=== PATIENT | female | born 1955 | race Two or more races ===

== ENCOUNTER 2024-09-30 17:13 | Inpatient (IN) | payer MEDICARE ==
[~2024-09-30] VITALS: Ht 149.9 cm; Wt 68.0 kg
[2024-09-30] MEDS ORDERED: ACETAMINOPHEN 325 MG TABLET ONE (18:19)
[2024-09-30] MEDS ORDERED: MORPHINE SULFATE INJ 2 MG/ML DISP.SYRIN ONE (18:19)
[2024-09-30] MEDS ORDERED: ONDANSETRON HCL/PF 4 MG/2 ML VIAL ONE (18:19)
[2024-09-30 18:24] LABS: BASOPHILS # (AUTO) 0.1 K/uL (0.0-0.2); BASOPHILS % (AUTO) 0.5 % (0.0-2.0); EOSINOPHILS % (AUTO) 0.2 % (0.0-6.0); HEMATOCRIT 33 % (33-45); HEMOGLOBIN 10.7 g/dL (11.5-14.8); LYMPHOCYTES # (AUTO) 0.9 K/uL (0.8-4.8); LYMPHOCYTES % (AUTO) 6.1 % (20.0-44.0); MEAN CORPUSCULAR HEMOGLOBIN 25 PG (26.0-33.0); MEAN CORPUSCULAR HGB CONC 32 g/dl (31.0-36.0); MEAN CORPUSCULAR VOLUME 77 fL (82-100); MONOCYTES # (AUTO) 1.3 K/uL (0.1-1.30); MONOCYTES % (AUTO) 9.5 % (2.0-12.0); NEUTROPHILS # (AUTO) 11.9 K/uL (1.8-8.9); NEUTROPHILS % (AUTO) 83.7 % (43.0-81.0); PLATELET COUNT (AUTO) 290 K/uL (150-450); RED BLOOD CELL COUNT(AUTO) 4.26 MIL/uL (4.0-5.2); RED CELL DISTRIBUTION WIDTH 18.5 % (11.5-15.0); WHITE BLOOD COUNT (AUTO) 14.2 K/uL (4.3-11.0)
[2024-09-30] MEDS: IV NS 0.9% 1,000 ML BAG IV ONE (18:26)
[2024-09-30] MEDS: MORPHINE SULFATE INJ 2 MG/ML DISP.SYRIN IV ONE (18:27)
[2024-09-30] MEDS: ACETAMINOPHEN 325 MG TABLET PO ONE (18:28)
[2024-09-30] MEDS: ONDANSETRON HCL/PF 4 MG/2 ML VIAL IVP ONE (18:28)
[2024-09-30 19:01] LABS: CARBON DIOXIDE 27 mmol/L (21-32); CHLORIDE 102 mmol/L (98-107); CREATININE 0.7 mg/dL (0.6-1.3); GLUCOSE 118 mg/dL (74-106); POTASSIUM 3.5 mmol/L (3.5-5.1); SODIUM SERUM 136 mmol/L (136-145); UREA NITROGEN, BLOOD 13 mg/dL (7-18)
[2024-09-30 19:06] LABS: ALANINE AMINOTRANSFERASE 13 U/L (12-78); ALBUMIN 3.1 g/dL (3.4-5.0); ALKALINE PHOSPHATASE 102 U/L (46-116); ASPARTATE AMINOTRANSFERASE 15 U/L (15-37); BILIRUBIN,DIRECT 0.3 mg/dL (0.0-0.2); BILIRUBIN,TOTAL 1.3 mg/dL (0.2-1.0); TOTAL PROTEIN, SERUM 7.1 g/dL (6.4-8.2)
[2024-09-30] MEDS ORDERED: SERT100T PO (19:09)
[2024-09-30] MEDS ORDERED: NAPR-1164 PO (19:09)
[2024-09-30] MEDS ORDERED: NAPR1TAB PO (19:09)
[2024-09-30] MEDS ORDERED: PIPERACI/TAZO 3.375GM/D5W 50ML PB IV ONE (20:12)
[2024-09-30 20:16] LABS: INR 1.07 (0.91-1.10); PARTIAL THROMBOPLASTIN TIME 32.6 SEC (24.3-34.3); PROTHROMBIN TIME 11.3 SECS (9.2-11.1)
[2024-09-30] MEDS: PIPERACILLIN /TAZOBACTAM 3.375 G in IV D5W 50 ML IV ONE (20:19)
[2024-09-30] MEDS ORDERED: ACETAMINOPHEN 650 MG/SUPP.RECT RC PRN (21:30)
[2024-09-30] MEDS ORDERED: Z GUARD REMEDY 4 OZ OINT TP PRN (21:30)
[2024-09-30] MEDS ORDERED: ONDANSETRON HCL/PF 4 MG/2 ML VIAL IVP PRN (21:30)
[2024-09-30 22:24] LABS: APPEARANCE,URINE CLEAR (CLEAR); BILIRUBIN,URINE 1+ (NEGATIVE); BLOOD, URINE 1+ Ery/uL (NEGATIVE); COLOR,URINE YELLOW (YELLOW); KETONES,URINE 1+ mg/dL (NEGATIVE); LEUKOCYTE ESTERASE ,URINE 1+ (NEGATIVE); NITRITE, URINE NEGATIVE (NEGATIVE); PROTEIN,URINE TRACE mg/dl (NEGATIVE); UGLUCOSE NEGATIVE (NEGATIVE); UROBILINOGEN,URINE 0.2 EU/dL (0.2)
[2024-09-30 22:44] LABS: BACTERIA,URINE Moderate /HPF (None Seen); SQUAMOUS EPITHELIAL CELL,UR Moderate /HPF (None Seen)
[2024-09-30 22:45] LABS: ADD URINE CULTURE YES
[2024-09-30] MEDS: IV NS 0.9% 1,000 ML IV PRN (23:14)
[2024-10-01] MEDS: PIPERACILLIN /TAZOBACTAM 3.375 G in IV D5W 50 ML IV ONE (02:07)
[2024-10-01] MEDS: PIPERACI/TAZO 3.375GM/D5W 50ML PB IV ONE (02:09)
[2024-10-01 06:24] LABS: ALBUMIN 2.5 g/dL (3.4-5.0); BILIRUBIN,DIRECT 0.5 mg/dL (0.0-0.2); BILIRUBIN,TOTAL 1.4 mg/dL (0.2-1.0); CALCIUM, SERUM 8.5 mg/dL (8.5-10.1); CREATININE 0.7 mg/dL (0.6-1.3); MAGNESIUM 2.2 mg/dL (1.8-2.4); PHOSPHORUS 2.3 mg/dL (2.5-4.9); POTASSIUM 3.5 mmol/L (3.5-5.1); TOTAL PROTEIN, SERUM 6.3 g/dL (6.4-8.2)
[2024-10-01 06:34] LABS: BASOPHILS % (AUTO) 0.2 % (0.0-2.0); EOSINOPHILS # (AUTO) 0.1 K/uL (0.0-0.7); EOSINOPHILS % (AUTO) 1.1 % (0.0-6.0); HEMATOCRIT 29 % (33-45); HEMOGLOBIN 9.9 g/dL (11.5-14.8); LYMPHOCYTES # (AUTO) 0.8 K/uL (0.8-4.8); LYMPHOCYTES % (AUTO) 7.1 % (20.0-44.0); MEAN CORPUSCULAR HEMOGLOBIN 26 PG (26.0-33.0); MEAN CORPUSCULAR HGB CONC 34 g/dl (31.0-36.0); MEAN CORPUSCULAR VOLUME 77 fL (82-100); MONOCYTES % (AUTO) 9.4 % (2.0-12.0); NEUTROPHILS # (AUTO) 9.1 K/uL (1.8-8.9); NEUTROPHILS % (AUTO) 82.2 % (43.0-81.0); PLATELET COUNT (AUTO) 274 K/uL (150-450); RED BLOOD CELL COUNT(AUTO) 3.79 MIL/uL (4.0-5.2); RED CELL DISTRIBUTION WIDTH 18.4 % (11.5-15.0)
[2024-10-01 08:22] VITALS: BP 110/67; TEMP 97.7; O2SAT 96
[2024-10-01] MEDS: PANTOPRAZOLE 40 MG VIAL IV SCH (09:02)
[2024-10-01] MEDS: ZOSYN IVPB 3.375 G in IV D5W 50ml IV SCH (09:04)
[2024-10-01] MEDS ORDERED: POTASSIUM PHOSPHATE MM 15 MMOL in IV NS 0.9% 250 ML IV SCH (11:00)
[2024-10-01] MEDS: Sodium Phosphate 15 MMOL in IV NS 0.9% 245 ML IV SCH (11:39)
[2024-10-01 15:56] VITALS: BP 129/65; TEMP 99; O2SAT 98
[2024-10-01 20:00] VITALS: BP 114/71; TEMP 98.1; O2SAT 96
[2024-10-02 07:23] LABS: BASOPHILS % (AUTO) 0.2 % (0.0-2.0); EOSINOPHILS % (AUTO) 0.3 % (0.0-6.0); HEMATOCRIT 30 % (33-45); HEMOGLOBIN 9.8 g/dL (11.5-14.8); LYMPHOCYTES # (AUTO) 0.6 K/uL (0.8-4.8); LYMPHOCYTES % (AUTO) 4.8 % (20.0-44.0); MEAN CORPUSCULAR HEMOGLOBIN 25 PG (26.0-33.0); MEAN CORPUSCULAR HGB CONC 32 g/dl (31.0-36.0); MEAN CORPUSCULAR VOLUME 78 fL (82-100); MONOCYTES # (AUTO) 0.8 K/uL (0.1-1.30); MONOCYTES % (AUTO) 7.4 % (2.0-12.0); NEUTROPHILS % (AUTO) 87.3 % (43.0-81.0); PLATELET COUNT (AUTO) 321 K/uL (150-450); RED BLOOD CELL COUNT(AUTO) 3.86 MIL/uL (4.0-5.2); RED CELL DISTRIBUTION WIDTH 18.5 % (11.5-15.0); WHITE BLOOD COUNT (AUTO) 11.5 K/uL (4.3-11.0)
[2024-10-02 07:30] VITALS: BP 139/69; TEMP 98.3; O2SAT 97
[2024-10-02 07:38] LABS: ALBUMIN 2.4 g/dL (3.4-5.0); BILIRUBIN,DIRECT 0.3 mg/dL (0.0-0.2); BILIRUBIN,TOTAL 0.9 mg/dL (0.2-1.0); CALCIUM, SERUM 8.7 mg/dL (8.5-10.1); CREATININE 0.6 mg/dL (0.6-1.3); POTASSIUM 3.5 mmol/L (3.5-5.1); TOTAL PROTEIN, SERUM 6.5 g/dL (6.4-8.2)
[2024-10-02 16:00] VITALS: BP 127/61; TEMP 98.8; O2SAT 96
[2024-10-02 19:05] LABS: INR 1.08 (0.91-1.10); PROTHROMBIN TIME 11.4 SECS (9.2-11.1)
[2024-10-02 20:00] VITALS: BP 130/66; TEMP 98.4; O2SAT 93
[2024-10-03 07:30] VITALS: BP 141/63; TEMP 98.2; O2SAT 99
[2024-10-03] MEDS: SERTRALINE HCL 50 MG TABLET PO SCH (09:40)
[2024-10-03] MEDS ORDERED: INDOCYANINE GREEN 25 MG/VIAL VIAL IJ ONE (13:01)
[2024-10-03] MEDS ORDERED: LIDOCAINE 1%-EPI 1:100,000 20 ML VIAL ONE (13:01)
[2024-10-03] MEDS ORDERED: BUPIVACAINE 0.5 % PF 150 MG/30 ML VIAL ONE (13:01)
[2024-10-03] MEDS ORDERED: IOHEXOL 0 ML IV ONE (13:06)
[2024-10-03] MEDS ORDERED: ROCURONIUM BROMIDE 50 MG/5 ML ONE (13:52)
[2024-10-03] MEDS ORDERED: FENTANYL PF 100MCG/2ML AMPUL ONE (13:52)
[2024-10-03] MEDS ORDERED: Magnesium 1 GM/2 ML VIAL ONE (13:52)
[2024-10-03] MEDS ORDERED: MIDAZOLAM HCL 2 MG/2ML VIAL ONE (13:52)
[2024-10-03] MEDS ORDERED: LIDOCAINE 2% JEL UROJET 10 ML MM ONE (14:25)
[2024-10-03] MEDS ORDERED: LABETALOL HCL IV 100MG VIAL ONE (15:00)
[2024-10-03 15:15] VITALS: BP 143/80; TEMP 97.7; O2SAT 95
[2024-10-03] MEDS ORDERED: LIDOCAINE 1% INJ 50 ML MDV IJ ONE (15:29)
[2024-10-03] MEDS ORDERED: MEPERIDINE HCL/PF 50 MG/ML DISP.SYRIN IV PRN (15:30)
[2024-10-03] MEDS ORDERED: HYDROMORPHONE 1 MG/1 ML DISP.SYRIN IV PRN (15:30)
[2024-10-03] MEDS ORDERED: LABETALOL HCL IV 100MG VIAL IV PRN (15:30)
[2024-10-03] MEDS ORDERED: TRANEXAMIC ACID 1,000 MG/10 ML VIAL ONE (15:34)
[2024-10-03 17:45] VITALS: BP 141/70; TEMP 97.9; O2SAT 97
[2024-10-03 20:00] VITALS: BP 139/69; TEMP 98.4; O2SAT 94
[2024-10-03 21:00] VITALS: BP 123/70; TEMP 98; O2SAT 98
[2024-10-04] MEDS: MORPHINE SULFATE INJ 2 MG/ML DISP.SYRIN IV PRN (00:30)
[2024-10-04 04:46] VITALS: BP 125/69; TEMP 98.2; O2SAT 98
[2024-10-04 05:54] LABS: BASOPHILS % (AUTO) 0.1 % (0.0-2.0); HEMATOCRIT 27 % (33-45); HEMOGLOBIN 9.4 g/dL (11.5-14.8); LYMPHOCYTES # (AUTO) 0.6 K/uL (0.8-4.8); LYMPHOCYTES % (AUTO) 6.4 % (20.0-44.0); MEAN CORPUSCULAR HEMOGLOBIN 27 PG (26.0-33.0); MEAN CORPUSCULAR HGB CONC 35 g/dl (31.0-36.0); MEAN CORPUSCULAR VOLUME 77 fL (82-100); MONOCYTES # (AUTO) 0.9 K/uL (0.1-1.30); NEUTROPHILS % (AUTO) 84.5 % (43.0-81.0); PLATELET COUNT (AUTO) 305 K/uL (150-450); RED BLOOD CELL COUNT(AUTO) 3.56 MIL/uL (4.0-5.2); RED CELL DISTRIBUTION WIDTH 18.2 % (11.5-15.0); WHITE BLOOD COUNT (AUTO) 9.5 K/uL (4.3-11.0)
[2024-10-04 06:18] LABS: ALBUMIN 2.2 g/dL (3.4-5.0); BILIRUBIN,TOTAL 0.5 mg/dL (0.2-1.0); CALCIUM, SERUM 8.7 mg/dL (8.5-10.1); CREATININE 0.5 mg/dL (0.6-1.3); POTASSIUM 3.7 mmol/L (3.5-5.1); TOTAL PROTEIN, SERUM 6.1 g/dL (6.4-8.2)
[2024-10-04 08:00] VITALS: BP 134/66; TEMP 98.2; O2SAT 92
[2024-10-04] MEDS: PANTOPRAZOLE 40 MG TABLET.DR PO SCH (08:23)
[2024-10-04 16:00] VITALS: BP 116/54; TEMP 100; O2SAT 94
[2024-10-04 20:00] VITALS: BP 123/59; TEMP 99.1; O2SAT 92
[2024-10-05 04:00] VITALS: BP 152/80; TEMP 98.4; O2SAT 98
[2024-10-05 08:00] VITALS: BP 144/71; TEMP 98.4; O2SAT 98
[2024-10-05 13:43] LABS: IRON, SERUM 17 ug/dl (50-175); TOTAL IRON BINDING CAPACITY 228 ug/dl (250-450)
[2024-10-05 13:50] LABS: FERRITIN 78 ng/mL (8-388)
[2024-10-05 16:00] VITALS: BP 143/78; TEMP 98.7; O2SAT 98
[2024-10-05 20:00] VITALS: BP 140/76; TEMP 97.7; O2SAT 96
[2024-10-05 22:40] VITALS: BP 140/76; TEMP 98; O2SAT 98
[2024-10-06 04:00] VITALS: BP 154/76; TEMP 98.4; O2SAT 96
[2024-10-06] MEDS: MAG HYDROX/AL HYDROX/SIMETH 30 ML UDC PO PRN (05:38)
[2024-10-06 08:33] VITALS: BP 154/74; TEMP 97.7; O2SAT 96
[2024-10-06] MEDS: SOD FERRIC GLUC 125 MG in IV NS 0.9% 100 ML IV SCH (14:47)
[2024-10-06] MEDS: ACETAMINOPHEN 325 MG TABLET PO PRN (14:51)
[2024-10-06 16:17] VITALS: BP 112/50; TEMP 97.7; O2SAT 95
[2024-10-06 20:00] VITALS: BP 124/81; TEMP 98.1; O2SAT 97
[2024-10-07 08:37] VITALS: BP 152/71; TEMP 98.3; O2SAT 93
[2024-10-07] MEDS ORDERED: ONDA4TAB5 PO (11:43)
[2024-10-07] MEDS ORDERED: HYDR-3972 PO (11:43)
[2024-10-07] MEDS ORDERED: AMOX-430 PO (11:43)
== END 2024-10-07 14:00 | disposition home or self-care (01) | DRG 418 ==
LOC: ER 17:15 → MED 21:50
PROVIDERS: ADMIT Nurse Practitioner Family; ATTEND Nurse Practitioner Acute Care
PROC: 0FT44ZZ Resection of Gallbladder, Percutaneous Endoscopic Approach (ICD-10-PCS; principal; 2024-10-03)
PROC: 0FB04ZX Excision of Liver, Percutaneous Endoscopic Approach, Diagnostic (ICD-10-PCS; 2024-10-03)
PROC: BF5C2Z0 Other Imaging of Hepatobiliary System, All using Fluorescing Agent, Intraoperative (ICD-10-PCS; 2024-10-03)
DX: K80.12 Calculus of gallbladder with acute and chronic cholecystitis without obstruction (principal); E46 Unspecified protein-calorie malnutrition; N39.0 Urinary tract infection, site not specified; E83.39 Other disorders of phosphorus metabolism; E88.09 Other disorders of plasma-protein metabolism, not elsewhere classified; E66.9 Obesity, unspecified; F41.9 Anxiety disorder, unspecified; R13.10 Dysphagia, unspecified; Z20.822 Contact with and (suspected) exposure to COVID-19; R73.9 Hyperglycemia, unspecified; E80.6 Other disorders of bilirubin metabolism; Z68.30 Body mass index [BMI] 30.0-30.9, adult; B96.89 Other specified bacterial agents as the cause of diseases classified elsewhere; D64.9 Anemia, unspecified; D72.829 Elevated white blood cell count, unspecified; K44.9 Diaphragmatic hernia without obstruction or gangrene
CPT/HCPCS: 36415; 71045-TC; 74181-TC; 80048-TC; 80053-TC; 80076-TC; 81001; 82150-TC; 82728-TC; 83540-TC; 83605-TC; 83690-TC; 83735-TC; 84100-TC; 84484-TC; 85025-TC; 85610-TC; 85730-TC; 86850-TC; 87040-TC; 87086-TC; 93307-TC; 93308-TC; 97112-TC; 97116-TC; 97530-TC; A4223; A6209; A9563; G0378; J0690; J1100; J2250; J2270; J2405; J2470; J2543; J2704; J2916; J3010; J3475; J3490; J7030; J7050; J7060; Q9967; Q9968